=== PATIENT | male | born 1965 | race African-American/Black ===

== ENCOUNTER 2019-04-17 00:02 | Emergency (ER) | payer OTHER | END 2019-04-17 01:26 | disposition left against medical advice (07) | LOC: ERS 00:02 | DX: Z53.21 Procedure and treatment not carried out due to patient leaving prior to being seen by health care provider (principal) ==

== ENCOUNTER 2021-06-18 18:53 | Emergency (ER) | payer OTHER ==
[2021-06-18] MEDS ORDERED: Lidocaine 1% w/Epinephrine 1:100K 20 ML VIAL ONE (20:31)
[2021-06-18] MEDS ORDERED: Boostrix 0.5 ML (Tdap) VIAL ONE (20:53)
[2021-06-18] MEDS ORDERED: Ibuprofen 800 MG TAB ONE (21:47)
[2021-06-18] MEDS ORDERED: Acetaminophen 500 MG TAB ONE ×2 (21:47→21:50)
== END 2021-06-18 22:31 | disposition home or self-care (01) ==
LOC: ERS 18:53
DX: S62.632A Displaced fracture of distal phalanx of right middle finger, initial encounter for closed fracture (principal); S01.91XA Laceration without foreign body of unspecified part of head, initial encounter; W10.8XXA Fall (on) (from) other stairs and steps, initial encounter; I10 Essential (primary) hypertension; E78.5 Hyperlipidemia, unspecified; F17.220 Nicotine dependence, chewing tobacco, uncomplicated
CPT/HCPCS: 12002; 70450; 70486; 72125; 90471; 90715

== ENCOUNTER 2022-08-20 12:21 | Emergency (ER) | payer OTHER, SELFPAY ==
[2022-08-20] MEDS ORDERED: Fentanyl 100 MCG/2 ML VIAL ONE ×2 (12:27→13:02)
[2022-08-20] MEDS ORDERED: Ondansetron PF 4 MG/2 ML Vial ONE ×2 (12:27→13:36)
[2022-08-20] MEDS ORDERED: Boostrix 0.5 ML (Tdap) VIAL (>/=7 yrs of age) ONE (12:27)
[2022-08-20 12:50] LABS: #Basophils 0.1 thou/uL (0.0-0.2); #Eosinphils 0.1 thou/uL (0.0-0.7); #Lymphocytes 3.6 thou/uL (1.20-3.40); #Monocytes 0.9 thou/uL (0.11-0.59); #Neutrophils 2.9 thou/uL (1.40-6.50); %Basophils 1.4 % (0.0-1.0); %Eosinophils 1.2 % (0.0-10.0); %Lymphocytes 47.6 % (21.0-51.0); %Monocytes 11.2 % (0.0-10.0); %Neutrophils 38.6 % (42.0-75.0); Mean Corpuscular HGB CONC 33.1 g/dL (32.0-36.0); Mean Corpuscular Volume 87.7 fl (78.0-98.0); Mean Platelet Volume 7.9 fL (7.4-10.4); Platelet Count 182 10x3/uL (130-400); RBC Distribution Width 11.2 % (11.5-14.5); Red Blood Cell (RBC) Count 4.81 mill/uL (4.70-6.10); White Blood Cell (WBC) Count 7.6 10x3/uL (4.8-10.8)
[2022-08-20] MEDS ORDERED: Bacitracin 1 PK ONE (13:02)
[2022-08-20 13:07] LABS: INR-International Normal Ratio 1.1; Prothrombin Time 14.9 sec (12.0-14.7)
[2022-08-20 13:08] LABS: PTT 30.7 sec (22.9-36.1)
[2022-08-20 13:18] LABS: ALT (SGPT) 24 U/L (8-55); AST (SGOT) 169 U/L (5-34); Albumin 4.6 g/dL (3.5-5.0); Alcohol 306 mg/dL (Less than 10); Alkaline Phosphatase 102 U/L (40-110); Anion Gap 17 mmol/L (10-20); BUN (Urea Nitrogen) 9 mg/dL (8.4-25.7); Bilirubin, Total 1.4 mg/dL (0.2-1.2); Calc. Creatinine Clearance 0 mL/min (70-130); Calcium 9.6 mg/dL (7.8-10.44); Carbon Dioxide 20 mmol/L (22-29); Chloride 99 mmol/L (98-107); Estimated GFR 91; Globulin 4.3 g/dL (2.4-3.5); Glucose 111 mg/dL (70-105); Potassium 3.7 mmol/L (3.5-5.1); Protein, Total 8.9 g/dL (6.0-8.3); Sodium 132 mmol/L (136-145)
[2022-08-20] MEDS ORDERED: Morphine 2 MG/ML VIAL ONE (13:38)
[2022-08-20] MEDS ORDERED: Thiamine HCl 200 MG/2 ML VIAL SLOW IVP SCH (14:00)
[2022-08-20] MEDS ORDERED: Acetaminophen 500 MG TAB ONE (14:34)
[2022-08-20] MEDS ORDERED: Iopamidol-370 76% 500 ML 1 ML ONE (15:08)
== END 2022-08-20 14:59 | disposition home or self-care (01) ==
LOC: ERS 12:21
DX: S00.83XA Contusion of other part of head, initial encounter (principal); S80.811A Abrasion, right lower leg, initial encounter; F10.129 Alcohol abuse with intoxication, unspecified; I10 Essential (primary) hypertension; E78.5 Hyperlipidemia, unspecified; F17.220 Nicotine dependence, chewing tobacco, uncomplicated; V89.2XXA Person injured in unspecified motor-vehicle accident, traffic, initial encounter; Y92.410 Unspecified street and highway as the place of occurrence of the external cause
CPT/HCPCS: 36415; 36416; 70450; 70486; 71045; 71260; 72125; 74177; 80053; 80307; 83605; 84484; 85025; 85610; 85730; 90471; 90715; 93005; 94760; 96374; 96375; 96376; J2272; J2405; J3010; J3411; Q9967